=== PATIENT | male | born 1960 | race Caucasian/White ===

== ENCOUNTER 2017-12-07 09:29 | Day surgery (SDC) | payer MEDICAID, SELFPAY ==
[2017-12-07 09:57] VITALS: BP 141/89; PULSE 73; RESP 16; TEMP 36.4; O2SAT 99; BMI 33.4
[2017-12-07 11:01] VITALS: BP 109/69; BP 141/89; PULSE 72; RESP 16; TEMP 36.4; O2SAT 95
[2017-12-07 11:05] VITALS: BP 109/67; BP 141/89; PULSE 65; RESP 16; O2SAT 96
[2017-12-07 11:10] VITALS: BP 113/71; BP 141/89; PULSE 62; RESP 16; O2SAT 97
[2017-12-07 11:15] VITALS: BP 115/73; BP 141/89; PULSE 66; RESP 16; TEMP 36.3; O2SAT 99
[2017-12-07 11:50] VITALS: BP 141/89
--- NOTE | 2017-12-07 14:38 | PCM.OPRPT ---
Problem List (1) Constipation Status: Acute Qualifiers: Constipation type: unspecified constipation type Qualified Code(s): K59.00 - Constipation, unspecified Report of Operation Date of Procedure: 12/07/17 Pre-Operative Diagnosis: Constipation with feeling of incomplete emptying Post-Operative Diagnosis: Normal colonoscopy Surgery/Procedure Performed:: Colonoscopy Description of Procedure: The major risks and benefits associated with the procedure were explained to the patient in detail. The patient verbalized understanding and agreement with the same. The patient was brought to the endoscopy suite. After adequate sedation was achieved, the patient was placed in the left lateral decubitus position and a digital rectal exam was performed. This examination was within normal limits. A well-lubricated colonoscope was then inserted into the rectum and advanced under direct visualization to the level of the cecum. The bowel prep was good. The cecum was identified by both visual and anatomic landmarks. A photograph was taken of the end of the cecum. The scope was then fully withdrawn while examining the color, texture, anatomy and integrity of the mucosa from the cecum to the anal canal. The findings were consistent with normal colonic mucosa. Over 6 minutes were taken to examine the colonic mucosa. Upon reaching the rectum the scope was retroflexed to examine the distal rectal vault. The scope was then straightened and was completely retrieved upon exiting the anal canal and the procedure was terminated. The patient was then transferred to the recovery room in stable condition. Recommendations for follow up: 10 years
== END 2017-12-07 11:53 | disposition home or self-care (01) ==
LOC: EN 09:32 → AC 09:35
PROVIDERS: Visit Provider Surgery
PROC: 0DJD8ZZ Inspection of Lower Intestinal Tract, Via Natural or Artificial Opening Endoscopic (ICD-10-PCS; CPT 45378; principal; 2017-12-07 10:25)
DX: K59.00 Constipation, unspecified (principal); Z87.19 Personal history of other diseases of the digestive system
CPT/HCPCS: 45378; J7120

== ENCOUNTER → 2018-07-19 11:51 | Outpatient (CLI) | payer MEDICAID, SELFPAY ==
--- NOTE | 2018-07-19 12:00 | RAD_ITS ---
HISTORY: pain in joints COMPARISON: None FINDINGS: XR left Hand Min 3 Views: No significant bony, soft tissue, or joint abnormality. Joint spaces appear preserved. No bony erosions or significant arthritis. RAD/Hand Min 3 Views IMPRESSION: Negative exam. No acute disease or significant arthritis. at 0010 Reported and signed by: Perry Brock MD Electronically Signed: Perry Brock, at 0:08 EST Tel , Service support ,
--- OUTSIDE RECORDS SUMMARY | 2018-09-04 05:17 | XMS RPT_ITS ---
:1960 Author Organization [facility] Care Team Providers Name Role Phone Elba Phoenix Attending Unavailable Elba Phoenix Referring Unavailable Primay Care Physicia, No Primary Care Unavailable Kasi Lind Attending Unavailable Kasi Lind Attending Unavailable Primay Care Physicia, No Primary Care Unavailable Kasi Lind Referring Unavailable Kasi Lind Attending Unavailable Kasi Lind Referring Unavailable Primay Care Physicia, No Primary Care Unavailable Kasi Lind Consulting Unavailable PROBLEMS PROBLEMS DATE TYPE CONDITION / CODE ATTENDING STATUS SOURCE 07/19/2018 Unknown M25.542 - Pain in [place] LEGAL RECRUITER, Active [place] joints of left [facility] hand / Hospital M25.542(ICD-10) Repository 12/03/2017 Unknown K59.00 - [place], Active [place] Constipation, Kasi [facility] unspecified / Hospital K59.00(ICD-10) Repository PROCEDURES PROCEDURES No Procedure Records FoundRESULTS RESULTS HAND MIN 3 VIEWS Observed: 07/19/2018 Status: F Source: [place] 11:56 AM [facility] REPOSITORY [facility] Imaging Services [address] [place] [address] Hand Min 3 Views MR#: [id number] Acct: [id number] Name: HAYES PHILLIP Rep #: [id number] : 1960 M 58 From: Perry Brock MD PCP: Care Physician, No Primary Status: REG CLI Study: Hand Min 3 Views Date of Exam: 07/19/18 Exam# [id number] Ordering Dr: Elba Galloway 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 Joint spaces appear preserved. No bony erosions or significant arthritis. RAD/Hand Min 3 Views IMPRESSION: Negative exam. No acute disease or significant arthritis. at 0010 Reported and signed by: Perry Brock MD Electronically Signed: Perry Brock, at 0:08 EST Tel , Service support , CC: No Primary Care Physician; Elba GOODWIN Elderly Sitter: Signed OPERATIVE REPORT Observed: 12/07/2017 Status: F Source: [place] 2:39 PM [facility] Medical Records Department [address] [place] [address] Operative Report 12/07/17 1438 MR#: [id number] Acct: [id number] Name: HAYES PHILLIP Rep #: [id number] : 1960 57 From: Kasi Lind MD PCP: Care Physician, No Primary Status: [facility] Y Location: EN Problem List (1) Constipation Status: Acute Qualifiers: Constipation type: unspecified constipation type Qualified Code(s): K59.00 - Constipation, unspecified Report of Operation Date of Procedure: 12/07/17 Pre-Operative Diagnosis: Constipation with feeling of incomplete emptying Post-Operative Diagnosis: Normal colonoscopy Surgery/Procedure Performed:: Colonoscopy Description of Procedure: The major risks and benefits associated with the procedure were explained to the patient in detail. The patient verbalized understanding and agreement with the same. The patient was brought to the endoscopy suite. After adequate sedation was achieved, the patient was placed in the left lateral decubitus position and a digital rectal exam was performed. This examination was within normal limits. A well- lubricated colonoscope was then inserted into the rectum and advanced under direct visualization to the level of the cecum. The bowel prep was good. The cecum was identified by both visual and anatomic landmarks. A photograph was taken of the end of the cecum. The scope was then fully withdrawn while examining the color, texture, anatomy and integrity of the mucosa from the cecum to the anal canal. The findings were consistent with normal colonic mucosa. Over 6 minutes were taken to examine the colonic mucosa. Upon reaching the rectum the scope was retroflexed to examine the distal rectal vault. The scope was then straightened and was completely retrieved upon exiting the anal canal and the procedure was terminated. The patient was then transferred to the recovery room in stable condition. Recommendations for follow up: 10 years 12/07/17 1439 <Electronically signed by Kasi Lind MD> Date Kasi Lind MD CC: No Primary Care Physician; Kasi Lind MD Signed SURGERY VISIT REPORT Observed: 12/03/2017 Status: F Source: [place] 9:07 AM [facility] [address] [place] [address] [address] [place] [address] OFFICE VISIT Date of Service: 12/03/17 MR#: [id number] Acct: [id number] Name: HAYES NEW Rep #: [id number] : 1960 Provider: Kasi Lind MD Age/Sex: 57/M Location: [facility] Status: Signed Intake Vital Signs12/03/17 Height 5 ft 6 in 12/03/17 Weight: 200 lb 12/03/17 Body Mass Index (BMI) 32.3 Intake Visit Reasons: Constipation x 1 month Checking Department Supervisor Required: No Is patient in pain?: No Allergies codeine Allergy (Mild, Verified 12/03/17 08:59) Unknown Latex, Natural Rubber Allergy (Verified 12/03/17 08:59) Unknown keflex Allergy (Uncoded 07/07/17 13:08) Unknown Medications multivitamin capsule 1 cap PO QAM 12/03/17 [History Confirmed 12/03/17] PFSH Medical History Constipation (Acute) none (Acute) Surgical History History of inguinal hernia repair (Acute) Family History Father Heart disease Grandfather Heart disease CVA (cerebral vascular accident) Grandmother Breast cancer Social History Smoking Status: Never smoker alcohol intake: current alcohol intake frequency: holidays/special occasions only substance use type: does not use HPI HPI HPI: HAYES NEW, is a 57 M who presents to the office today for constipation and change in stool caliber. The patient reports that for the last month he has been having constipation and reports he is not completely evacuating. He is having no abdominal pain or blood in his stool. He also notes that his stool has been flatter than normal. The patient has never had a colonoscopy in the past. He has no nausea or vomiting or other abdominal symptoms. He reports no change in his diet. He has no inadvertent weight loss or family history of colon cancer. ROS General General: No weight change, appetite or fatigue Cardio Cardiovascular: No murmur, pacemaker, heart disease, atrial fibrillation, high blood pressure, heart attack, heart stent, palpitations, shortness of breat with exertion or chest pain Psych Psychiatric: No depression or anxiety Resp Respiratory: No shortness of breath, No sleep apnea, No cough, No COPD, No asthma, No emphysema, No wheezing Gastro Gastrointestinal: No abdominal pain, No nausea or vomiting, No diarrhea, Yes constipation, No blood in stool, No acid reflux, No hemorrhoids, No ulcers, No gallbladder problem, No black,tarry stools Daniel Hematologic: No blood thinners, No blood disorders, No bleeding, No anemia, No blood clots Exam Const Orientation: alert, oriented x3 Resp Auscultation: clear to auscultation bilaterally Cardio Rate: regular rate Rhythm: regular rhythm Heart Sounds: no murmurs GI Inspection: normal to inspection, non-distended Palpation: soft, no hernias, nontender Assessment AND Plan Problems 1. Constipation, unspecified constipation type K59.00 Plan 1. The patient reports he is having constipation and change in his stool caliber. He has no blood in his stool but he has never had a colonoscopy in the past. His PCP sent him here for colonoscopy to rule out malignancy or stricture. I discussed performing a colonoscopy for him and he agrees to proceed. 2. I explained endoscopy in detail to the patient. I explained the risks including but not limited to stroke or heart attack with anesthesia, perforation of the GI tract, bleeding, infection. I explained that any of these could necessitate further emergency surgery. The patient understands and all questions were answered sufficiently. The patient wishes to proceed with procedure. Kasi Lind MD Pager: [facility] [address] [place] [address] Outpatient [place], [address] [place] [address] Office: Orders Orders: Coding Level of Care Code Off vis,new,level 3 Diagnoses Constipation, unspecified constipation type K59.00 Constipation type: unspecified constipation type 12/03/17 0907 <Electronically signed by Kasi Lind MD> Date Kasi Lind MD Cosigner Signature: Date (if applicable) CC: Eve Gibson ALLERGIES ALLERGIES DATE TYPE / CODE NAME / CODE REACTION SEVERITY SOURCE 12/04/2017 Drug Latex, Unknown Unknown [place] [facility]/[id number]([facility]) Rubber/P69013 Hospital 0526(RXNORM) Repository 12/04/2017 Drug codeine/F0060 Unknown [place] Allergy/[id number]( 23543(RXNORM) [facility]) Hospital Repository 12/04/2017 Miscellaneous keflex Unknown Unknown [place] Allergy/[id number]([facility] Hospital Repository ENCOUNTERS ENCOUNTERS ADMIT/DISCHARGE ACCOUNT ADMITTING ENCOUNTER LOCATION SOURCE NUMBER CLASS 07/19/2018 [id number] Ambulatory [place] 4 [facility] ing:RAD Repository 12/07/2017/ [id number] Ambulatory [place] 8 9 [facility] ing:EN Repository 12/07/2017 [id number] Ambulatory BMSBuilding:B [place] 8 [place] Repository 12/03/2017/ [id number] Ambulatory BMSBuilding:B [place] 8 3 [facility] Repository PAYERS PAYERS ENCOUNTER GUARANTOR PAYER SUBSCRIBER SOURCE 07/19/2018 HAYES Noble Primary HAYES B [place] [id number] Insurance:CARESOURCEP MCC[place]UREDOB: [facility] [place]: [id number] [id number] Repository [address]Imm: (330) Date:2018-07-19P O [phone] () [address]ATTN: [place] [address]HI: 07/19/2018 Secondary NOT GIVENUNK [place] Insurance:SELF PAY [facility] [place] Number: Effective Repository Date:2018-07-19 12/07/2017 HAYES B Primary HAYES B [place] [id number] Insurance:CARESOURCEP MCCLUREDOB: [facility] Number: [id number] [id number] Repository [address]Vlt: (330) Date:2017-12-03P O [phone] () [address]ATTN: [place] [address]IM: 12/07/2017 Secondary NOT GIVENUNK [place] Insurance:SELF PAY [facility] [place] Number: Effective Repository Date:2017-12-03 12/07/2017 HAYES Noble Primary HAYES B [place] [id number] Insurance:CARESOURCEP MCCLUREDOB: [facility] Number: [id number] [id number] Repository [address]Tgn: (330) Date:2017-12-03P O [phone] () [address]ATTN: [place] [address]WJ: 12/07/2017 Secondary NOT GIVENUNK [place] Insurance:SELF PAY [facility] [place] Number: Effective Repository Date:2017-12-07 12/03/2017 HAYES Noble Primary HAYES B [facility] [place] [id number] Insurance:CARESOURCEP CLUREDOB: [facility] Number: [id number] [id number] Repository [address]Szb: (330) Date:2017-11-28P O [phone] () [address]ATTN: [place] [address]EM: 12/03/2017 Secondary NOT GIVENUNK [place] Insurance:SELF PAY [facility]: Effective Repository Date:2017-12-03
== END ==
PROVIDERS: Referring Provider Nurse Practitioner Family; Visit Provider Nurse Practitioner Family
DX: M25.542 Pain in joints of left hand (principal)
CPT/HCPCS: 73130

== ENCOUNTER → 2022-11-22 | Outpatient (CLI) | payer MEDICAID, SELFPAY ==
[2022-11-24 09:09] LABS: Lyme Scn Total Ab w/Rflx Negative (Negative)
== END | disposition home or self-care (01) ==
PROVIDERS: Visit Provider Nurse Practitioner Family
DX: M25.552 Pain in left hip (principal)
CPT/HCPCS: 36415; 86618